=== PATIENT | female | born 1965 | race Caucasian/White ===

== ENCOUNTER 2018-06-07 12:18 | Inpatient (IN) | payer MEDICARE ==
[~2018-06-07] VITALS: Ht 170.2 cm; Wt 100.0 kg
[~2018-06-07 12:18] MED LIST: ALBU8.5H8 INH; ATOR80TA PO; CHOL2000 PO; EPIN0.3P3 IM; FLUT1DIS3 INH; GABA600T2 PO; HYDR-3241 PO; LACT1CAP35 PO; LEVO150T PO; LEVO175T2 PO; LISI40TA PO; METH500T7 PO; OMEG1CAP23 PO; RISP2TAB35 PO; SENN1TAB67 PO; SERT100T PO; TRAM50TA2 PO; TRAZ-137 PO; UBID100C41 PO; VENL150C PO
[2018-06-09 06:00] VITALS: BP 122/83
[2018-06-09] MEDS ORDERED: BACITRACIN 50,000 UNIT ONE (06:30)
[2018-06-09] MEDS ORDERED: BUPIVACAINE/PF-EPI 0.5% 1:200K ONE (06:30)
[2018-06-09] MEDS ORDERED: FENTANYL PF 250 MCG/5ML ONE (06:38)
[2018-06-09] MEDS ORDERED: MIDAZOLAM 1 MG/ML, 2ML ONE (06:38)
[2018-06-09] MEDS ORDERED: PROPOFOL 10 MG/ML, 20ML ONE (06:39)
[2018-06-09] MEDS ORDERED: LIDOCAINE-MPF 2% ,5ML ONE (06:39)
[2018-06-09] MEDS ORDERED: WATER-INJECTION,STERILE 10 ML IV ONE (06:40)
[2018-06-09] MEDS ORDERED: CEFAZOLIN 1,000 MG ONE ×2 (06:40)
[2018-06-09] MEDS ORDERED: SUCCINYLCHOLINE 20 MG/ML, 10ML ONE (06:42)
[2018-06-09] MEDS ORDERED: DEXAMETHASONE 4 MG/ML, 1ML ONE ×2 (06:42)
[2018-06-09] MEDS ORDERED: ONDANSETRON 2MG/ML, 2ML ONE ×2 (06:42)
[2018-06-09] MEDS ORDERED: PROPOFOL 50 ML ONE ×2 (06:48→07:55)
[2018-06-09] MEDS ORDERED: REMIFENTANIL 1 MG ONE (06:51)
[2018-06-09] MEDS ORDERED: PHENYLEPHRINE 10 MG/ML ONE (07:04)
[2018-06-09] MEDS ORDERED: BUPIVACAINE/PF-EPI 0.5% 1:200K INFIL ONE (07:40)
[2018-06-09] MEDS ORDERED: THROMBIN 5,000 UNIT VIAL TP ONE (07:41)
[2018-06-09] MEDS ORDERED: BACITRACIN 50,000 UNIT IM ONE (07:41)
[2018-06-09] MEDS ORDERED: FENTANYL PF 100 MCG/2ML ONE (09:24)
[2018-06-09] MEDS ORDERED: EPINEPHRINE 1 MG/ML, 1ML IM PRN (09:30)
[2018-06-09] MEDS ORDERED: HYDROmorphone 2 MG/ML, 1ML ONE (09:45)
[2018-06-09] MEDS ORDERED: OXYcodone 5 MG/5 ML ORAL.SOL UDC ONE (09:46)
[2018-06-09] MEDS: HYDROmorphone 1 MG/ML, 1ML IV PRN ×3 (09:48→10:19)
[2018-06-09] MEDS ORDERED: ONDANSETRON 2MG/ML, 2ML IVPush PRN (10:00)
[2018-06-09] MEDS ORDERED: LABETALOL 5MG/ML, 20ML IV PRN (10:00)
[2018-06-09] MEDS ORDERED: HYDROcodone/APAP 10/325 MG TABLET PO PRN (10:00)
[2018-06-09] MEDS ORDERED: PROMETHAZINE 25 MG/ML, 1ML IV PRN (10:00)
[2018-06-09] MEDS ORDERED: PROMETHAZINE 25 MG/ML, 1ML IM PRN (10:00)
[2018-06-09] MEDS ORDERED: ACETAMINOPHEN 325 MG TABLET PO PRN (10:00)
[2018-06-09] MEDS ORDERED: SENNA/DOCUSATE TABLET PO PRN (10:00)
[2018-06-09] MEDS ORDERED: DIPHENHYDRAMINE 50 MG/ML, 1ML IVPush PRN (10:00)
[2018-06-09] MEDS ORDERED: ALBUTEROL SULFATE 2.5 MG/3 ML NPPB PRN ×3 (10:00→10:30)
[2018-06-09] MEDS ORDERED: PHARMACY MAY ADJ FOR RENAL FX MC PRN (10:00)
[2018-06-09] MEDS ORDERED: OXYcodone 5 MG/5 ML ORAL.SOL UDC PO PRN (10:00)
[2018-06-09] MEDS ORDERED: FENTANYL PF 100 MCG/2ML IV PRN (10:00)
[2018-06-09] MEDS ORDERED: hydrALAzine 20 MG/ML, 1ML IV PRN (10:00)
[2018-06-09] MEDS ORDERED: HALOPERIDOL 5 MG/ML IV PRN (10:00)
[2018-06-09] MEDS ORDERED: HYDROcodone/APAP 5/325 TABLET PO PRN (10:00)
[2018-06-09] MEDS ORDERED: BISACODYL 10 MG SUPP PR PRN (10:00)
[2018-06-09] MEDS ORDERED: DIAZEPAM 5 MG/ML, 2ML IVPush PRN (10:00)
[2018-06-09] MEDS ORDERED: MEPERIDINE/PF 25MG/0.5ML IVPush PRN (10:00)
[2018-06-09 11:15] VITALS: BP 134/80
[2018-06-09] MEDS: D5%-0.9% NACL+KCL 20MEQ 1,000 ML IV SCH ×2 (12:43→23:26)
[2018-06-09] MEDS: METHOCARBAMOL 750 MG TABLET PO PRN ×2 (12:43→20:56)
[2018-06-09] MEDS: OXYcodone/APAP 5/325MG TABLET PO PRN ×3 (13:48→22:43)
[2018-06-09] MEDS ORDERED: THROMBIN SPRAY 20,000 UNIT SPRAY TP ONE (14:17)
[2018-06-09 14:37] VITALS: BP 121/55
[2018-06-09] MEDS: CEFAZOLIN PMX 1GM/50ML 50 ML IVPB SCH ×2 (14:57→23:26)
[2018-06-09] MEDS: morphine SULFATE 10 MG/ML, 1ML IVPush PRN ×3 (15:03→19:17)
[2018-06-09 18:36] VITALS: BP 144/80
[2018-06-09] MEDS: GABAPENTIN 400 MG CAPSULE PO SCH (19:58)
[2018-06-09] MEDS: SODIUM CHLORIDE FLUSH 10ML SYR IVF SCH (20:00)
[2018-06-09] MEDS: FLUTICASONE/VILANTEROL 100-25MCG/INH INH SCH (20:56)
[2018-06-09] MEDS ORDERED: TRAZODONE 100MG TABLET PO SCH (21:00)
[2018-06-09] MEDS ORDERED: RISPERIDONE 2 MG TABLET PO SCH (21:00)
[2018-06-09] MEDS ORDERED: LACTOBACILLUS CHEW TABLET PO SCH (21:00)
[2018-06-09] MEDS ORDERED: ATORVASTATIN 80 MG TABLET PO SCH (21:00)
[2018-06-09] MEDS ORDERED: NICOTINE 21 MG/24 HR PATCH.TD24 TD SCH (22:00)
[2018-06-09] MEDS ORDERED: CEFAZOLIN PMX 1GM/50ML 50 ML ONE (23:24)
[2018-06-10 00:10] VITALS: BP 110/48
[2018-06-10] MEDS: morphine SULFATE 10 MG/ML, 1ML IVPush PRN (00:27)
[2018-06-10] MEDS: OXYcodone/APAP 5/325MG TABLET PO PRN ×3 (03:03→13:16)
[2018-06-10 04:27] VITALS: BP 104/59
[2018-06-10] MEDS ORDERED: LEVOTHYROXINE 100 MCG TABLET ONE (05:41)
[2018-06-10] MEDS ORDERED: LEVOTHYROXINE 75 MCG TABLET ONE (05:41)
[2018-06-10] MEDS ORDERED: LEVOTHYROXINE 175 MCG TABLET PO SCH ×2 (06:00→09:00)
[2018-06-10] MEDS: GABAPENTIN 400 MG CAPSULE PO SCH (08:54)
[2018-06-10] MEDS: FLUTICASONE/VILANTEROL 100-25MCG/INH INH SCH (08:57)
[2018-06-10] MEDS ORDERED: SERTRALINE 100MG TABLET PO SCH (09:00)
[2018-06-10] MEDS ORDERED: LEVOTHYROXINE 150 MCG TABLET PO SCH (09:00)
[2018-06-10] MEDS ORDERED: LISINOPRIL 20 MG TABLET PO SCH (09:00)
[2018-06-10] MEDS ORDERED: VENLAFAXINE 75 MG CAP ER PO SCH (09:00)
[2018-06-10] MEDS: SODIUM CHLORIDE FLUSH 10ML SYR IVF SCH (09:00)
[2018-06-10 09:17] VITALS: BP 108/72
[2018-06-10] MEDS ORDERED: FAMOTIDINE 20 MG/2 ML IVPush ONE (10:00)
[2018-06-10] MEDS ORDERED: MAALOX/HYOSCYAMINE/LIDOCAINE 45 ML BTL PO ONE (10:00)
[2018-06-10 10:21] LABS: BASOPHILS # (AUTO) 0.01 x10^3/uL (0-0.1); BASOPHILS % (AUTO) 0 % (0-1); EOSINOPHILS # (AUTO) 0.04 x10^3/uL (0-0.4); EOSINOPHILS % (AUTO) 0 % (1-7); LYMPHOCYTES # (AUTO) 2.93 x10^3/uL (1-3.4); LYMPHOCYTES % (AUTO) 32 % (22-44); MD NO; MEAN CORPUSCULAR HEMOGLOBIN 30.8 pg (27.0-34.8); MEAN CORPUSCULAR VOLUME 93.3 fL (80-100); MONOCYTES # (AUTO) 0.83 x10^3/uL (0.2-0.8); MONOCYTES % (AUTO) 9 % (2-9); NEUTROPHILS # (AUTO) 5.49 x10^3/uL (1.8-6.8); NEUTROPHILS % (AUTO) 59 % (42-75); PLATELET COUNT 303 x10^3/uL (130-400); RED BLOOD COUNT 3.96 x10^6/uL (3.82-5.3); RED CELL DISTRIBUTION WIDTH 13.6 % (9.6-15.2)
[2018-06-10 10:24] LABS: ALANINE AMINOTRANSFERASE 17 U/L (12-78); ALBUMIN 3.2 g/dL (3.4-5.0); ANION GAP 8 mmol/L (5-15); CALCIUM 8.6 mg/dL (8.5-10.1); CHLORIDE 108 mmol/L (98-107)
[2018-06-10] MEDS: METHOCARBAMOL 750 MG TABLET PO PRN (10:25)
[2018-06-10 10:28] LABS: ALKALINE PHOSPHATASE 59 U/L (45-117); BILIRUBIN,TOTAL 0.3 mg/dL (0.2-1.0); TOTAL PROTEIN 6.3 g/dL (6.4-8.2); TROPONIN I < 0.015 ng/mL (0.000-0.045)
[2018-06-10] MEDS: D5%-0.9% NACL+KCL 20MEQ 1,000 ML IV SCH (13:17)
[2018-06-10 13:19] VITALS: BP 124/69
[2018-06-10] MEDS ORDERED: METH750T2 PO (15:00)
[2018-06-10] MEDS ORDERED: NABUMETONE 500 MG TABLET PO PRN (15:30)
[2018-06-10] MEDS ORDERED: OXYcodone/APAP 10/325MG TABLET PO PRN (15:30)
[2018-06-10] MEDS ORDERED: OXYC-307 PO (15:39)
[2018-06-10] MEDS ORDERED: METH750T87 PO (15:39)
== END 2018-06-10 16:20 | disposition home or self-care (01) | DRG 472 ==
LOC: UNDOADMIN 06-09 05:39 → 4NOR 06-09 05:39 → ORIP 06-09 05:39
PROVIDERS: ADMIT Neurological Surgery; ATTEND Neurological Surgery
PROC: 0RB30ZZ Excision of Cervical Vertebral Disc, Open Approach (ICD-10-PCS; 2018-06-09)
PROC: 4A11X4G Monitoring of Peripheral Nervous Electrical Activity, Intraoperative, External Approach (ICD-10-PCS; 2018-06-09)
PROC: 0RG20A0 Fusion of 2 or more Cervical Vertebral Joints with Interbody Fusion Device, Anterior Approach, Anterior Column, Open Approach (ICD-10-PCS; principal; 2018-06-09 07:00)
PROC: 5A09357 Assistance with Respiratory Ventilation, Less than 24 Consecutive Hours, Continuous Positive Airway Pressure (ICD-10-PCS; 2018-06-10)
DX: M50.123 Cervical disc disorder at C6-C7 level with radiculopathy (principal); E44.1 Mild protein-calorie malnutrition; M47.22 Other spondylosis with radiculopathy, cervical region; M48.02 Spinal stenosis, cervical region; K21.9 Gastro-esophageal reflux disease without esophagitis; M25.78 Osteophyte, vertebrae; I10 Essential (primary) hypertension; F32.9 Major depressive disorder, single episode, unspecified; F17.210 Nicotine dependence, cigarettes, uncomplicated; R51 Headache; R07.9 Chest pain, unspecified; J45.909 Unspecified asthma, uncomplicated; Z91.030 Bee allergy status; Z88.8 Allergy status to other drugs, medicaments and biological substances; E03.9 Hypothyroidism, unspecified
CPT/HCPCS: 36415; 71045; 72040; 80053; 82550; 82552; 84484; 85025; 93005; C1713; G0378; J0690; J1100; J1170; J2250; J2405; J2704; J3010; J3490; C1762; J0330; J2270; J2370; J3480; S0028